=== PATIENT | male | born 1980 | race Caucasian/White ===

== ENCOUNTER 2021-07-03 11:39 | Outpatient (CLI) | payer OTHER, SELFPAY | END 2021-07-03 23:59 | disposition home or self-care (01) | LOC: MLB 11:39 → EDSTATUS 07-05 11:45 | PROVIDERS: ATTEND Internal Medicine Gastroenterology | DX: Z01.812 Encounter for preprocedural laboratory examination (principal); Z20.822 Contact with and (suspected) exposure to COVID-19; K50.90 Crohn's disease, unspecified, without complications ==

== ENCOUNTER 2021-12-20 08:54 | Day surgery (SDC) | payer OTHER, SELFPAY ==
[~2021-12-20] VITALS: Ht 190.5 cm; Wt 93.0 kg
[2021-12-20] MEDS ORDERED: diphenhydrAMINE 50 MG/ML VIAL ONE (09:40)
[2021-12-20] MEDS ORDERED: LIDOCAINE 2% 100 MG/5 ML UJET TP ONE (09:41)
[2021-12-20] MEDS ORDERED: fentaNYL citrate 0.05 MG/ML VIAL ONE (09:41)
[2021-12-20] MEDS ORDERED: MIDAZOLAM 5 MG/5 ML VIAL ONE ×2 (09:41→11:07)
[2021-12-20] MEDS ORDERED: diphenhydrAMINE 50 MG/ML VIAL IVP ONE (12:25)
[2021-12-20] MEDS ORDERED: MIDAZOLAM 2 MG/2 ML VIAL IVP ONE (12:25)
[2021-12-20] MEDS ORDERED: fentaNYL citrate 0.05 MG/ML VIAL IVP ONE (12:25)
== END 2021-12-20 12:07 | disposition home or self-care (01) ==
LOC: MDS 08:54 → MMU 08:55 → MDS 12:07
PROVIDERS: ATTEND Internal Medicine Gastroenterology
DX: Z12.11 Encounter for screening for malignant neoplasm of colon (principal); K50.90 Crohn's disease, unspecified, without complications; K56.699 Other intestinal obstruction unspecified as to partial versus complete obstruction; Z20.822 Contact with and (suspected) exposure to COVID-19; Z79.899 Other long term (current) drug therapy
CPT/HCPCS: 45380; 45386; 87426; J1200; J2250; J3010